=== PATIENT | male | born 1985 ===

== ENCOUNTER 2017-02-18 13:53 | Emergency (ER) | payer OTHER ==
[2017-02-18 14:11] VITALS: TEMP 99.8; O2SAT 98
[2017-02-18] MEDS ORDERED: Sodium Chloride 0.9% 1,000 ML IV STA (14:39)
--- NOTE | 2017-02-18 14:39 | ED PDOC ---
Arrival/HPI - General Chief Complaint: ENT Problem Time Seen by Provider: 02/18/17 14:22 Historian: Patient - History of Present Illness Narrative History of Present Illness (Text): 02/18/17 14:37 31yo male with no PMHx who present with complaint of sore throat x 3days. He was given Augmentin 875mg by his PMD, without relieve. +Odynophagia. Denies fever, chills, dysphagia, drooling, any other complaint. Past Medical History - Provider Review Nursing Documentation Reviewed: Yes - Infectious Disease Hx of Infectious Diseases: None - Psychiatric Hx Substance Use: No - Anesthesia Hx Anesthesia: No Family/Social History - Physician Review Nursing Documentation Reviewed: Yes Family/Social History: Unknown Family HX Smoking Status: Unknown If Ever Smoked Hx Alcohol Use: No Hx Substance Use: No Allergies/Home Meds Allergies/Adverse Reactions: Allergies No Known Allergies Allergy (Verified 02/18/17 14:10) Home Medications: Home Meds Medication Instructions Recorded Confirmed Amoxicillin/Clavulanate [Augmentin 1 tab PO Q12 02/18/17 02/18/17 875 MG-125 MG] Review of Systems - Physician Review All systems were reviewed & negative as marked: Yes - Review of Systems Constitutional: Normal Eyes: Normal ENT: Sore Throat Respiratory: Normal Cardiovascular: Normal Gastrointestinal: Normal Genitourinary Male: Normal Musculoskeletal: Normal Skin: Normal Neurological: Normal Endocrine: Normal Hemo/Lymphatic: Normal Psychiatric: Normal Physical Exam Vital Signs Reviewed: Yes Vital Signs Temp Pulse Resp BP Pulse Ox 02/18/17 17:26 98 H 16 134/88 98 02/18/17 14:05 99.8 F H 115 H 20 144/98 H 98 Temperature: Afebrile Blood Pressure: Normal Pulse: Tachycardic Respiratory Rate: Normal Appearance: Positive for: Well-Appearing, Non-Toxic, Comfortable Pain Distress: None Mental Status: Positive for: Alert and Oriented X 3 - Systems Exam Head: Present: Atraumatic, Normocephalic Pupils: Present: PERRL Extroacular Muscles: Present: EOMI Conjunctiva: Present: Normal Mouth: Present: Moist Mucous Membranes Pharnyx: Present: ERYTHEMA, EXUDATE, TONSILS ENLARGED, Peritonsilar Swelling. No: Uvular Deviation, Muffled/Hoarse Voice, Strider, Soft Palate/Uvular Edema Neck: Present: Normal Range of Motion Respiratory/Chest: Present: Clear to Auscultation, Good Air Exchange. No: Respiratory Distress, Accessory Muscle Use Cardiovascular: Present: Regular Rate and Rhythm, Normal S1, S2. No: Murmurs Abdomen: Present: Normal Bowel Sounds. No: Tenderness, Distention, Peritoneal Signs Back: Present: Normal Inspection Upper Extremity: Present: Normal Inspection. No: Cyanosis, Edema Lower Extremity: Present: Normal Inspection. No: Edema Neurological: Present: GCS=15, CN II-XII Intact, Speech Normal Skin: Present: Warm, Dry, Normal Color. No: Rashes Psychiatric: Present: Alert, Oriented x 3, Normal Insight, Normal Concentration Medical Decision Making ED Course and Treatment: 02/18/17 18:06 PT was hemodynamically stable. Controlling his secretion in ED. Lab was unremarkable Soft neck CT - IMPRESSION: Moderate bilateral tonsillitis without abscess related. Mild suprahyoid neck lymphadenopathy. Pt treated with Decadron and PNC. Advised to continue with Augmentin and f/u with his PMD. - Lab Interpretations Lab Results: 02/18/17 15:00 02/18/17 15:00 Lab Results 02/18/17 15:00: Sodium 143, Potassium 4.0, Chloride 100, Carbon Dioxide 26, Anion Gap 21 H, BUN 13, Creatinine 0.8, Est GFR ( Amer) > 60, Est GFR ( Non-Af Amer) > 60, Random Glucose 125 H, Calcium 9.7, Total Bilirubin 1.1, AST 52, ALT 91 H, Alkaline Phosphatase 111, Total Protein 8.6 H, Albumin 4.7, Globulin 3.9, Albumin/Globulin Ratio 1.2 02/18/17 15:00: WBC 9.0, RBC 4.97, Hgb 15.0, Hct 42.9, MCV 86.3, MCH 30.2, MCHC 35.0, RDW 12.1, Plt Count 210, MPV 8.8, Gran % 75.2 H, Lymph % (Auto) 12.6 L, Leslie % (Auto) 11.9 H, Eos % (Auto) 0.0 L, Baso % (Auto) 0.3, Gran # 6.74 H, Lymph # 1.1 L, Leslie # 1.1 H, Eos # 0.0, Baso # 0.03 - RAD Interpretation Radiology Orders: 02/18/17 14:32 NECK SOFT TISSUE W/CONTRAST [CT] Stat - Medication Orders Current Medication Orders: Discontinued Medications Dexamethasone (Decadron Inj) 10 mg IVP STAT STA Stop: 02/18/17 14:34 Last Admin: 02/18/17 15:26 Dose: 10 mg IVP Administration Document 02/18/17 15:26 AD (Rec: 02/18/17 15:26 AD [facility] [id number][place] Charges for Administration # of IVP Administrations 1 Sodium Chloride (Sodium Chloride 0.9%) 1,000 mls @ 999 mls/hr IV .Q1H1M STA Stop: 02/18/17 15:39 Last Admin: 02/18/17 15:26 Dose: 999 mls/hr eMAR Start Stop Document 02/18/17 15:26 AD (Rec: 02/18/17 15:26 AD [facility] [id number][place] Intravenous Solution Start Date 02/18/17 Start Time 15:26 Penicillin G Benzathine (Bicillin L-A Inj) 1,200,000 units IM STAT STA PRN Reason: Protocol Stop: 02/18/17 18:10 Disposition/Present on Arrival - Present on Arrival Any Indicators Present on Arrival: No History of DVT/PE: No History of Uncontrolled Diabetes: No Urinary Catheter: No History of Decub. Ulcer: No History Surgical Site Infection Following: None - Disposition Have Diagnosis and Disposition been Completed?: Yes Diagnosis: Acute tonsillitis Disposition: HOME/ ROUTINE Disposition Time: 18:10 Patient Plan: Discharge Patient Problems: Current Active Problems Problem Status Onset Acute tonsillitis Acute Condition: STABLE Discharge Instructions (ExitCare): Tonsillitis (ED) Additional Instructions: Continue with your mediation Follow up with your Doctor Return to ED for any new or worsening symptoms Referrals: PCP,NO [Primary Care Provider] - Follow up with primary Forms: [employer] (Bengali)
[2017-02-18 15:33] LABS: BASO # 0.03 K/mm3 (0.0-2.0); BASO % 0.3 % (0.0-3.0); GRAN # 6.74 (1.4-6.5); GRAN % 75.2 % (50.0-68.0); HEMATOCRIT 42.9 % (42.0-52.0); LYMPH # 1.1 (1.2-3.4); LYMPH % 12.6 % (22.0-35.0); MEAN CELL VOLUME 86.3 fl (80.0-105.0); MEAN CORPUSCULAR HEMOGLOBIN 30.2 pg (25.0-35.0); MEAN PLATELET VOLUME 8.8 fl (7.0-11.0); MONO # 1.1 (0.1-0.6); MONO % 11.9 % (1.0-6.0); RED CELL DISTRIBUTION WIDTH 12.1 % (11.5-14.5)
[2017-02-18 15:47] LABS: ALB/GLOB RATIO 1.2 (1.1-1.8); ALKALINE PHOSPHATASE 111 U/L (38-126); ALT/SGPT 91 U/L (7-56); AST/SGOT 52 U/L (17-59); BILIRUBIN,TOTAL 1.1 mg/dL (0.2-1.3); BLOOD UREA NITROGEN 13 mg/dL (7-21); CALCIUM 9.7 mg/dL (8.4-10.5); CARBON DIOXIDE 26 mmol/L (21-33); CHLORIDE 100 mmol/L (98-107); GFR AFRICAN-AMERICAN > 60; GLUCOSE,RANDOM 125 mg/dL (70-110); SODIUM 143 mmol/L (132-148); TOTAL PROTEIN 8.6 g/dL (5.8-8.3)
[2017-02-18] MEDS ORDERED: Iohexol 350 MG/100 ML VIAL ONE (16:39)
[2017-02-18 17:26] VITALS: BP 134/88; PULSE 98; RESP 16
--- NOTE | 2017-02-18 18:04 | CT ---
PROCEDURE: CT NECK WITH CONTRAST HISTORY: r/o tonsillar abscess COMPARISON: None TECHNIQUE: CT of the neck with intravenous contrast. Coronal and sagittal reformats generated. Intravenous contrast dose: Omnipaque 350, 100 cc. Radiation dose: DLP 504.18 mGy-cm This CT exam was performed using one or more of the following dose reduction techniques: Automated exposure control, adjustment of the mA and/or kV according to patient size, and/or use of iterative reconstruction technique. FINDINGS: NASOPHARYNX: Unremarkable. SUPRAHYOID NECK: Unremarkable oral cavity, parapharyngeal space and retropharyngeal space. Evaluation of the oropharynx however reveals prominent bilateral tonsillar pillars suggesting tonsillitis. No evidence of abscess. INFRAHYOID NECK: Unremarkable larynx, hypopharynx, and supraglottic space. Vocal cords intact. MASS: None. GLANDS: Parotid and submandibular glands unremarkable. Normal size thyroid gland, without nodule. LYMPH NODES: Mild level IIa lymphadenopathy bilaterally up to 1.7 cm on the right and 2.1 cm at the left. . CERVICAL SPINE: No fracture or focal lesion. VASCULAR STRUCTURES: Unremarkable. OTHER FINDINGS: None. IMPRESSION: Moderate bilateral tonsillitis without abscess related. Mild suprahyoid neck lymphadenopathy.
[2017-02-18] MEDS ORDERED: Penicillin G Benzathine 1.2 Mill Unit/2 ml Syr IM STA (18:09)
== END 2017-02-18 18:42 | disposition home or self-care (01) ==
LOC: ED 13:53
DX: J03.90 Acute tonsillitis, unspecified (principal)
CPT/HCPCS: 70491; 80053; 85025; 96372; 96374; 99283; J0561; J1100; J7040; Q9967